=== PATIENT | male | born 1940 | race Caucasian/White ===

== ENCOUNTER 2017-03-15 21:50 | Emergency (ER) | payer MEDICARE, OTHER ==
[2017-03-15 22:34] LABS: BASOPHIL 0.3 % (0-2); EOSINOPHIL 1.2 % (0-7); HGB 14.2 g/dl (13.2-18.0); LYMPHOCYTE 18.4 % (15-48); MCH 31.6 pg (25.0-31.0); MCHC 34.6 g/dL (32.0-36.0); MCV 91.3 fL (78.0-100.0); MONOCYTE 10.3 % (0-12); MPV 8.5 fL (6.0-9.5); NEUTROPHIL 69.8 % (41-80); PLT 247 K/uL (150-400); RBC 4.49 M/uL (4.70-6.00); RDW 13.2 % (11.5-14.0); WBC 5.8 K/uL (4.0-10.5)
[2017-03-15 22:51] LABS: ALBUMIN 4.3 g/dL (3.4-4.8); BILIRUBIN - TOTAL 0.4 mg/dL (0.1-1.0); CREATININE 0.8 mg/dL (0.7-1.2); GLOBULIN (CALCULATION) 2.3 g/dL (2.2-4.2); POTASSIUM 4.2 mmol/L (3.5-5.1); TOTAL PROTEIN 6.6 g/dL (6.4-8.3)
== END 2017-03-16 00:29 | disposition home or self-care (01) ==
LOC: FER 21:50
PROVIDERS: Emergency Medicine
DX: K59.00 Constipation, unspecified (principal); G20 Parkinson's disease; E03.9 Hypothyroidism, unspecified; G89.29 Other chronic pain; Z88.1 Allergy status to other antibiotic agents; Z79.891 Long term (current) use of opiate analgesic; Z79.899 Other long term (current) drug therapy; Z98.890 Other specified postprocedural states
CPT/HCPCS: 36415; 74022; 80053; 83690; 84443; 85025; 99284

== ENCOUNTER 2021-03-12 05:37 | Day surgery (SDCO) | payer MEDICARE ==
[~2021-03-12] VITALS: Ht 165.1 cm; Wt 64.9 kg
[~2021-03-12 05:37] MED LIST: ASPIR 8181 MG PO; CARBIDOPA-LEVO1 EAC6 PO; CYMBALTA 30MG C30 MG PO; LASIX20 MG PO; MOBIC7.5 MG PO; NEURONTIN300 MG PO; NORCO 5-325 TA1 EACH PO; NORVASC5 MG PO; PRILOSEC20 MG PO; RASAGILINE MESYL1 MG PO
[2021-03-12 06:08] LABS: BASOPHIL 0.2 % (0-2); EOSINOPHIL 0.8 % (0-7); HCT 39.2 % (42.0-52.0); HGB 12.2 g/dl (13.2-18.0); LYMPHOCYTE 14.2 % (15-48); MCH 29.3 pg (25.0-31.0); MCHC 31.1 g/dL (32.0-36.0); MONOCYTE 5.8 % (0-12); MPV 9.5 fL (6.0-9.5); NEUTROPHIL 78.5 % (41-80); NRBC 0; PLT 331 K/uL (150-400); RBC 4.17 M/uL (4.70-6.00); RDW 14.5 % (11.5-14.0); WBC 13.3 K/uL (4.0-10.5)
[2021-03-12 06:11] LABS: INR 1.06 (0.9-1.2); PROTHROMBIN TIME 13.1 SECONDS (11.4-13.6)
[2021-03-12 06:19] LABS: ALBUMIN 3.5 g/dL (3.4-5.0); ALKALINE PHOSHATASE 153 U/L (46-116); ALT 9 U/L (16-63); AST 24 U/L (15-37); BILIRUBIN - TOTAL 0.5 mg/dL (0.2-1.0); BUN 37 mg/dL (7-18); BUN/CREAT RATIO (CALC) 29.1 RATIO; CHLORIDE 101 mmol/L (98-107); CO2 (BICARBONATE) 30 mmol/L (21-32); CREATININE 1.27 mg/dL (0.67-1.17); GLOBULIN (CALCULATION) 4.9 g/dL; GLUCOSE 104 mg/dL (74-106); POTASSIUM 4.6 mmol/L (3.5-5.1); TOTAL PROTEIN 8.4 g/dL (6.4-8.2)
[2021-03-12 07:00] LABS: LACTIC ACID 1.3 mmol/L (0.4-1.9)
[2021-03-12 07:00] LABS: BILIRUBIN NEGATIVE (NEGATIVE); BLOOD 2+ Ery/uL (NEGATIVE); CLARITY CLEAR (CLEAR); COLOR YELLOW (YELLOW); GLUCOSE (U) NORMAL (NORMAL); LEUKOCYTES NEGATIVE Leu/uL (NEGATIVE); NITRITE NEGATIVE (NEGATIVE); PROTEIN TRACE (LOW) mg/dL (NEGATIVE); SPECIFIC GRAVITY 1.015 (1.001-1.030); UROBILINOGEN 0.2 mg/dL (0.2-1.0)
[2021-03-12 07:04] LABS: AMPHETAMINES NEGATIVE (NEGATIVE); BARBITURATES NEGATIVE (NEGATIVE); ECSTASY (MDMA) NEGATIVE (NEGATIVE); MARIJUANA (THC) NEGATIVE (NEGATIVE); METHADONE NEGATIVE (NEGATIVE); OPIATES NEGATIVE (NEGATIVE); OXYCODONE NEGATIVE (NEGATIVE)
[2021-03-12] MEDS ORDERED: PRILOSEC20 MG PO (10:02)
[2021-03-12] MEDS ORDERED: CARBIDOPA-LEVO1 EAC1 PO (10:03)
[2021-03-12] MEDS ORDERED: IMODIUM2 MG PO (10:03)
[2021-03-12] MEDS ORDERED: 24HOUR ALLERGY10 MG PO (10:04)
[2021-03-12] MEDS ORDERED: CYMBALTA60 MG PO (10:05)
[2021-03-12] MEDS ORDERED: MOBIC7.5 MG PO (10:06)
[2021-03-12] MEDS ORDERED: LYRICA 50MG CAP50 MG PO (10:07)
[2021-03-14 06:40] LABS: BASOPHIL 0.9 % (0-2); EOSINOPHIL 2.7 % (0-7); HCT 32.4 % (42.0-52.0); HGB 10.7 g/dl (13.2-18.0); LYMPHOCYTE 23.5 % (15-48); MCH 29.7 pg (25.0-31.0); MONOCYTE 8.9 % (0-12); MPV 9.2 fL (6.0-9.5); NEUTROPHIL 63.1 % (41-80); NRBC 0; PLT 276 K/uL (150-400); RDW 14.3 % (11.5-14.0); WBC 5.9 K/uL (4.0-10.5)
[2021-03-14 06:46] LABS: BUN/CREAT RATIO (CALC) 24.5 RATIO; CREATININE 1.06 mg/dL (0.67-1.17); POTASSIUM 3.6 mmol/L (3.5-5.1)
[2021-03-15] MEDS ORDERED: AZITHROMYCIN250 MG PO (16:27)
[2021-03-15] MEDS ORDERED: CYMBALTA60 MG PO (16:27)
[2021-03-15] MEDS ORDERED: LYRICA200 MG PO (16:27)
[2021-03-15] MEDS ORDERED: NORVASC5 MG PO (16:27)
== END 2021-03-15 19:30 ==
LOC: FER 05:37 → FMS 08:21
PROVIDERS: Emergency Medicine; ADMIT Allergy & Immunology Allergy
DX: G31.83 Neurocognitive disorder with Lewy bodies (principal); F02.80 Dementia in other diseases classified elsewhere, unspecified severity, without behavioral disturbance, psychotic disturbance, mood disturbance, and anxiety; J18.9 Pneumonia, unspecified organism; I10 Essential (primary) hypertension; K21.9 Gastro-esophageal reflux disease without esophagitis; L89.159 Pressure ulcer of sacral region, unspecified stage; M19.90 Unspecified osteoarthritis, unspecified site; R29.6 Repeated falls; Z20.822 Contact with and (suspected) exposure to COVID-19; Z79.899 Other long term (current) drug therapy; Z87.891 Personal history of nicotine dependence; Z88.1 Allergy status to other antibiotic agents; Z98.890 Other specified postprocedural states
CPT/HCPCS: 36415; 70450; 71045; 74230; 80048; 80053; 80305; 81001; 83605; 85025; 85610; 92611; 93005; 97162; 97166; 97530; 97530-GP; G0378; G0480; U0002